=== PATIENT | male | born 1980 | race Hispanic/Latino ===

== ENCOUNTER 2017-04-17 20:04 | Emergency (ER) | payer BC ==
[2017-04-17 20:12] VITALS: BP 135/90; PULSE 74; RESP 18; TEMP 97.7; O2SAT 98
--- NOTE | 2017-04-17 21:32 | ED PDOC ---
HPI: Trauma/Fall - HPI Time Seen by Provider: 04/17/17 20:22 Chief Complaint (Nursing): Trauma Chief Complaint (Provider): Trauma History Per: Patient History/Exam Limitations: no limitations Onset/Duration Of Symptoms: Days (x2 days) Additional Complaint(s): 36 y/o male with history of fibrous dysplasia of the right elbow presents to the ED for swelling and bleeding in the right arm since yesterday 04/16/17. Patient states that he was thrown out of the bar in [place] yesterday which led to his swelling of the right arm. He describes the pain as crushing and states his tetanus is up to date. denies any further medical complaints. Past Medical History Reviewed: Historical Data, Nursing Documentation, Vital Signs Vital Signs: Last Vital Signs Temp 97.7 F 04/17/17 20:08 Pulse 74 04/17/17 20:08 Resp 18 04/17/17 20:08 BP 135/90 04/17/17 20:08 Pulse Ox 98 04/17/17 20:08 - Medical History Other PMH: Fibrous Dysplasia - Surgical History Other surgeries: Right Arm - Family History Family History: States: Unknown Family Hx - Social History Current smoker - smoking cessation education provided: No Alcohol: None Drugs: Denies - Allergies Allergies/Adverse Reactions: Allergies Allergy/AdvReac Type Severity Reaction Status Date / Time No Known Allergies Allergy Verified 04/17/17 20:08 Review of Systems ROS Statement: Except As Marked, All Systems Reviewed And Found Negative (As per HPI, otherwise negative) Musculoskeletal: Positive for: Arm Pain (swelling and bleeding in the right arm) Physical Exam - Reviewed Nursing Documentation Reviewed: Yes Vital Signs Reviewed: Yes - Physical Exam Appears: Positive for: Non-toxic, No Acute Distress Head Exam: Positive for: ATRAUMATIC, NORMAL INSPECTION, NORMOCEPHALIC Skin: Positive for: Normal Color, Warm, Dry Pulses-Radial (R): 2+ Extremity: Positive for: Normal ROM (Right fingers and wrist), Swelling (mild edema and superficial abrasions in the right arm), Other (Distal sensation intact) Neurologic/Psych: Positive for: Alert, Oriented (x3) - ECG O2 Sat by Pulse Oximetry: 98 (RA) Pulse Ox Interpretation: Normal Medical Decision Making Medical Decision Making: Time: 21:05 Initial Plan: --x-ray Right elbow Pt's significant other appears to be intoxicated, being loud with staff and would not sit in room when asked. Pt's significant other escorted out of ED and Pt luz crane 21:30 Scribe Attestation: Documented by Yang Fox, acting as a scribe for Ana Maria Garcia PA-C Provider Scribe Attestation: All medical record entries made by the Scribe were at my direction and personally dictated by me. I have reviewed the chart and agree that the record accurately reflects my personal performance of the history, physical exam, medical decision making, and the department course for this patient. I have also personally directed, reviewed, and agree with the discharge instructions and disposition. Disposition - Clinical Impression Clinical Impression: Elbow injury - Patient ED Disposition Is Patient to be Admitted: No - Disposition Disposition: Eloped Disposition Time: 21:53 Condition: STABLE Forms: [facility] (French) - POA Present On Arrival: Falls Or Trauma
== END 2017-04-17 21:15 | disposition left against medical advice (07) ==
LOC: H.ER 20:04
DX: S59.901A Unspecified injury of right elbow, initial encounter (principal); Y04.0XXA Assault by unarmed brawl or fight, initial encounter; Y92.89 Other specified places as the place of occurrence of the external cause